=== PATIENT | male | born 1990 | race Caucasian/White ===

== ENCOUNTER 2018-07-16 17:06 | Emergency (ER) | payer OTHER ==
[~2018-07-16] VITALS: Ht 195.6 cm; Wt 113.4 kg
[2018-07-16] MEDS ORDERED: KEFLEX500 M1 PO (17:51)
[2018-07-16 18:14] VITALS: BP 110/74
== END 2018-07-16 18:15 | disposition home or self-care (01) ==
LOC: M.ERS 17:06
DX: S61.210A Laceration without foreign body of right index finger without damage to nail, initial encounter (principal); W26.8XXA Contact with other sharp object(s), not elsewhere classified, initial encounter; Y93.89 Activity, other specified; Y92.89 Other specified places as the place of occurrence of the external cause; Y99.8 Other external cause status